=== PATIENT | female | born 1985 | race Two or more races ===

== ENCOUNTER 2017-06-05 08:01 | Inpatient (IN) | payer SELFPAY ==
[2017-06-04 12:42] LABS: ABSOLUTE LYMPHOCYTES (AUTO) 1.4 10^3/uL (0.5-4.7); ABSOLUTE MONOCYTES (AUTO) 0.5 10^3/uL (0.1-1.4); BASOPHILS % (AUTO) 0.3 % (0-2); EOSINOPHILS % (AUTO) 0.1 % (0-6); HEMATOCRIT 34.8 % (36.0-47.0); HEMOGLOBIN 11.4 g/dL (12.0-15.5); LYMPHOCYTES % (AUTO) 20.2 % (13-45); MEAN CORPUSCULAR HEMOGLOBIN 26.1 pg (27.0-33.4); MEAN CORPUSCULAR HGB CONC 32.6 g/dL (32.0-36.0); MEAN CORPUSCULAR VOLUME 80 fl (80-97); MONOCYTES % (AUTO) 7.7 % (3-13); PLATELET COUNT 176 10^3/uL (150-450); RED BLOOD COUNT 4.35 10^6/uL (3.72-5.28); RED CELL DISTRIBUTION WIDTH 15.1 % (11.5-14.0); SEGMENTED NEUTROPHILS % (AUTO) 71.7 % (42-78); TOTAL CELLS COUNTED % (AUTO) 100 %
[2017-06-04 13:06] LABS: APPEARANCE,URINE SLIGHTLY-CLOUDY; BILIRUBIN,URINE NEGATIVE (NEGATIVE); COLOR,URINE YELLOW; GLUCOSE, URINE NEGATIVE (NEGATIVE); KETONES,URINE NEGATIVE (NEGATIVE); LEUKOCYTE ESTERASE,URINE NEGATIVE (NEGATIVE); NITRITE,URINE NEGATIVE (NEGATIVE); PROTEIN,URINE 30 mg/dL (NEGATIVE); URINE SPECIFIC GRAVITY 1.024
[2017-06-04 14:15] LABS: URINE AMPHETAMINES SCREEN NEGATIVE; URINE BARBITURATES SCREEN NEGATIVE; URINE BENZODIAZEPINES SCREEN NEGATIVE; URINE COCAINE SCREEN NEGATIVE; URINE MARIJUANA (THC) SCREEN NEGATIVE; URINE METHADONE SCREEN NEGATIVE; URINE PHENCYCLIDINE SCREEN NEGATIVE
[~2017-06-05 08:01] MED LIST: CEFAZOLIN SODIUM 3 GM in DEXTROSE 5%-WATER 100 ML IV PRN; LACTATED RINGERS 1000 ML IV PRN; LIDOCAINE 0.5% INJ-PF (5 MG/ML) 50 ML SDV SUBCUT PRN; RINGERS SOLUTION,LACTATED 1,000 ML IV PRN
[2017-06-05] MEDS ORDERED: FENTANYL CITRATE INJ/PF 100 MCG/2 ML AMPUL ONE (10:24)
[2017-06-05] MEDS ORDERED: OXYTOCIN 10 UNIT/ML VIAL ONE (10:24)
[2017-06-05] MEDS ORDERED: ONDANSETRON HCL INJ/PF 4 MG/2 ML SDV ONE (10:25)
[2017-06-05] MEDS ORDERED: TETRACAINE HCL/PF 20MG/2ML AMPULE (SPINAL) ONE (10:25)
[2017-06-05] MEDS ORDERED: EPHEDRINE SULFATE INJ 50 MG/1 ML AMPULE ONE (10:25)
[2017-06-05] MEDS ORDERED: OXYTOCIN/NORMAL SALINE 20 UNIT/1,000 ML RTUINJ ONE (10:25)
[2017-06-05] MEDS ORDERED: MIDAZOLAM 2 MG/2 ML INJ ONE (10:25)
[2017-06-05] MEDS: MISOPROSTOL 0.2 MG TABLET ONE ×2 (11:51→12:32)
--- NOTE | 2017-06-05 12:02 | Brief Operative Note ---
BRIEF OPERATIVE REPORT DATE OF SURGERY: 06/05/17 TIME OF SURGERY: 11:55 PREOPERATIVE DIAGNOSIS: 36+6ega, , H/o , Breech/Breech, Di/Di TIUP, Undesired Fertility, Desires Primary Section POSTOPERATIVE DIAGNOSIS: JOSEPH - delivered, tubal Sterilization SURGEON: MAGNUS WOODSON FINDINGS: Baby A VMI breech delivered at 1059, AROM clear fluid 1059, weith 5# 9oz, Apgars 9/9. Baby B VFI breech converted to cephalic for delivery at 1102, AROM clear fluid at 1100, weight 6#5oz. Normal bilateral tubes/ovaries. Filschie clips x 2 placed bilateral tubes. IVF 2000ml, UOP 400ml, 1000ml EBL COMPLICATIONS: None ESTIMATED BLOOD LOSS: 1000ml TISSUE REMOVED OR ALTERED: placenta and cord sent to pathology TECHNICAL PROCEDURE: Primary LTCS with BTL
[2017-06-05] MEDS ORDERED: OXYTOCIN/NORMAL SALINE 20 UNIT/1,000 ML RTUINJ IV PRN (12:03)
[2017-06-05] MEDS ORDERED: ACETAMINOPHEN 100 ML IV PRN (12:03)
[2017-06-05] MEDS ORDERED: SIMETHICONE 80 MG TAB.CHEW PO PRN (12:03)
[2017-06-05] MEDS ORDERED: RINGERS SOLUTION,LACTATED 1,000 ML IV PRN (12:03)
[2017-06-05] MEDS ORDERED: PROMETHAZINE HCL INJ 25 MG/1 ML VIAL IV PRN (12:03)
[2017-06-05] MEDS ORDERED: OXYCODONE-ACETAMINOPHEN 5-325 MG TABLET PO PRN (12:03)
[2017-06-05] MEDS ORDERED: DIPH/PERTUSS(ACELL)/TETANUS VAC/PF 0.5 ML SYR (>=10YO) IM PRN (12:03)
[2017-06-05] MEDS ORDERED: ACETAMINOPHEN 325 MG TABLET PO PRN (12:03)
[2017-06-05] MEDS ORDERED: MISOPROSTOL 0.2 MG TABLET ONE (12:03)
[2017-06-05] MEDS ORDERED: HYDROMORPHONE HCL INJ/PF 2 MG/ML AMPULE IV PRN (12:03)
[2017-06-05] MEDS ORDERED: MEASLES,MUMPS&RUBELLA VACC/PF 0.5 ML VIAL SUBCUT PRN (12:03)
[2017-06-05] MEDS ORDERED: ACETAMINOPHEN 100 ML IV ONE (12:10)
[2017-06-05] MEDS ORDERED: NALBUPHINE HCL INJ 10 MG/1 ML AMPULE ONE (12:15)
--- NOTE | 2017-06-05 12:22 | PDOC DELIVERY SUMMARY ---
Delivery Summary - Maternal Hx : VII Hx Para: IV Hx # Term Pregnancies: 4 Hx # Pregnancies: 0 Hx Total # of Abortions (Sponateous & Elective): 1 Number of Living Children: 4 MANA: 06/27/17 Gestational Age: 36.6 Risk Factors: Other - Di/Di TIUP, Breech/Breech Ruptured Membranes: AROM Time of Rupture: 10:59 Fluids: Clear Fluid Description: BABY B: AROM: 1100 - Delivery Labor: Not In Labor Presentation: Breech Heart Rate Monitoring: Done Pre-Operatively Uterine Contraction Monitoring: External Support Person Present: Yes Location: OR : Scheduled Placenta: Within Normal Limits Placenta Description: normal Number of Vessels (Cord): 3 Nuchal Cord: Yes Delivery of Placenta Date: 06/05/17 Delivery of Placenta Time: 10:59 Estimated Blood Loss: 1000 Quantitative Blood Loss (QBL): 1,395 - Medications Type of Anesthesia:: Spinal - Delivery Medications Delivery Meds: Cytotec 1000mcg Per Rectum/Vagina - Infant Assess and Care Baby 1 Male Delivery of Date: 06/05/17 Delivery of Time: 10:59 at 1 minute: 9 at 5 minutes: 9 Preprinted Number On Band: [id number] Skin to Skin: No Mode of Transport: Bassinet Infant Delivery Weight: 2,525 Delivery Length: 19.25 in - Delivery Personnel Loading Manager: HUDSON WISE RN LIAISON: NEVA VÁZQUEZ MD: MAGNUS WOODSON
--- NOTE | 2017-06-05 12:45 | Operative Report ---
Operative Report DATE OF SURGERY: 06/05/17 PREOPERATIVE DIAGNOSIS: 36+6ega, , H/o , Breech/Breech, Di/Di TIUP, Undesired Fertility, Desires Primary Section POSTOPERATIVE DIAGNOSIS: JOSEPH - delivered, tubal Sterilization OPERATION: Primary LTCS with BTL SURGEON: MAGNUS WOODSON ANESTHESIA: Spinal TISSUE REMOVED OR ALTERED: placenta and cord sent to pathology COMPLICATIONS: None ESTIMATED BLOOD LOSS: 1000ml INTRAOPERATIVE FINDINGS: Baby A VMI breech delivered at 1059, AROM clear fluid 1059, weith 5#9oz, Apgars 9/9. Baby B VFI breech converted to cephalic for delivery at 1102, AROM clear fluid at 1100, weight 6#5oz. Normal bilateral tubes/ovaries. Filschie clips x 2 placed bilateral tubes. IVF 2000ml, UOP 400ml , 1000ml EBL , QBL 1395 PROCEDURE: Anesthesia: Spinal Anesthesia provider: [Barron Rodriguez CRNA, Pillo CEBALLOS] Urine output: [400ml] IV fluids: [1000ml] Indications: [31yo at 36+6ega with Di/Di TIUP and breech/breech presentation. She was counseled on day of preop with armin and day of surgery with SILVIA regarding section and tubal sterilization. She is 100% sure that she has completed childbearing and desires tubal sterilization. She desires to proceed with planned procedure for Primary section with Bilateral tubal sterilization.] Procedure: The patient was taken to the operating room where spinal anesthesia was obtained and found to be adequate. She was then prepped and draped in the normal sterile fashion and placed in the dorsal supine position with a leftward tilt. A Pfannenstiel skin incision was then made and carried through to the underlying layers of the fascia with the scalpel. The fascia was incised in the midline and the incision extended laterally with the Medina scissors. The superior aspect of the fascial incision was then grasped with Tiffanie clamps elevated and the underlying rectus muscles dissected off [bluntly]. Attention was then turned to the inferior aspect of the fascial incision which in a similar fashion was grasped, tented up with Jeancarlos clamps, and the rectus muscles dissected off [bluntly]. The rectus muscles were then in the midline and the peritoneum at the amount identified and entered [bluntly]. The peritoneal incision was then extended superiorly and inferiorly with good visualization of the bladder. The bladder blade was inserted and the vesicouterine peritoneum identified grasped with [place] pickups and entered sharply with the Metzenbaum scissors. This incision was then extended laterally with the Metzenbaum scissors and a bladder flap created digitally. The bladder blade was then reinserted and the lower uterine segment incised in a transverse fashion with the scalpel. The uterine incision was then extended bluntly. The bladder blade was removed and baby A was delivered from breech presentation without difficulty. AROM performed for baby B and due to contraction of uterus and placentation baby B was concerted from oblique breech presentation to cephalic for delivery. The nose and mouth were suctioned and the cord doubly clamped and cut for each baby. And the infants was handed off to waiting pediatricians. The placentas were then delivered spontaneously and the uterus exteriorized and cleared of all clots and debris. The uterine incision was then repaired with 1- 0 Vicryl in a running locked fashion. A second layer of the same suture was used to obtain hemostasis via imbrication of the initial layer. The bladder flap was then repaired with 3-0 chromic in a running fashion. The right fallopian tube was identified and followed out to the fimbriated end and Filschie clips times 2 placed in ampullary portion of the fallopian tube. THis procedure was repeated on the right completing the tubal ligation. The uterus was returned to the patient's abdomen and Interceed was placed overlying the uterine incision to prevent adhesions. The gutters were cleared of all clots and debris. All operative sites were noted to be hemostatic. The fascia was reapproximated with 0 Vicryl in a running fashion from each lateral edge to the midline. Surgicel placed overlying the rectus muscles. The skin was closed with 3-0 Monocryl in a running subcuticular fashion with overlying Dermabond for additional dressing as well as wound closure. The patient tolerated the procedure well. Sponge lap needle and instrument counts are correc times 2. 3 g of Ancef were given prior to skin incision. The patient was taken to the recovery area awake and in stable condition.
[2017-06-05] MEDS ORDERED: KETOROLAC TROMETHAMINE INJ/PF 30 MG/1 ML SDV ONE (13:32)
[2017-06-05] MEDS: KETOROLAC TROMETHAMINE INJ/PF 30 MG/1 ML SDV IV SCH ×2 (13:34→21:23)
[2017-06-05] MEDS: DOCUSATE SODIUM 100 MG CAPSULE PO SCH (17:47)
[2017-06-05] MEDS: OXYCODONE-ACETAMINOPHEN 5-325 MG TABLET PO PRN (20:10)
[2017-06-06] MEDS: OXYCODONE-ACETAMINOPHEN 5-325 MG TABLET PO PRN (04:03)
[2017-06-06] MEDS: KETOROLAC TROMETHAMINE INJ/PF 30 MG/1 ML SDV IV SCH (05:48)
[2017-06-06] MEDS: IBUPROFEN 800 MG TABLET PO SCH ×4 (05:48→23:12)
[2017-06-06 07:09] LABS: HEMATOCRIT 27.8 % (36.0-47.0); MEAN CORPUSCULAR HEMOGLOBIN 26.5 pg (27.0-33.4); MEAN CORPUSCULAR HGB CONC 33.2 g/dL (32.0-36.0); MEAN CORPUSCULAR VOLUME 80 fl (80-97); PLATELET COUNT 167 10^3/uL (150-450); RED BLOOD COUNT 3.48 10^6/uL (3.72-5.28); RED CELL DISTRIBUTION WIDTH 14.9 % (11.5-14.0); WHITE BLOOD COUNT 10.2 10^3/uL (4.0-10.5)
[2017-06-06 07:11] LABS: HEMOGLOBIN 9.2 g/dL (12.0-15.5)
--- NOTE | 2017-06-06 09:36 | PDOC PROGRESS REPORT ---
Subjective-OB Progress Note for:: 06/06/17 Subjective: Doing well, no c/o, babies in room, eating well, voiding, ambulating Physical Exam (OB) Vital Signs: Temp Pulse Resp BP Pulse Ox 98.4 F 64 18 128/72 H 95 06/06/17 08:19 06/06/17 08:19 06/06/17 08:19 06/06/17 08:19 06/06/17 08:19 Intake & Output 06/05/17 06/06/17 06/07/17 06:59 06:59 06:59 Intake Total 2850 Output Total 1325 Balance 1525 Weight 88 kg - Dressing Removed: No Incision: Well Approximated Closure Type: Surgical Glue - Lochia Lochia Amount: Small 10-25 ml Lochia Color: Rubra/Red - Abdomen Description: Soft, Round Hernia Present: No Fundal Description: Firm, Midline Fundal Height: u/u - u/2 Objective-Diagnostic Laboratory: 06/06/17 06:26 06/06/17 06:26 WBC 10.2 RBC 3.48 L Hgb 9.2 L D Hct 27.8 L MCV 80 MCH 26.5 L MCHC 33.2 RDW 14.9 H Plt Count 167 Assessment and Plan(PN) - Assessment and Plan (1) delivery indicated due to breech presentation Is this a current diagnosis for this admission?: Yes (2) Sterilization Is this a current diagnosis for this admission?: Yes (3) Twin delivery by Is this a current diagnosis for this admission?: Yes - Time Spent with Patient Time with patient: Less than 15 minutes - Disposition Anticipated Discharge: Home Within: within 48 hours
[2017-06-06] MEDS: DOCUSATE SODIUM 100 MG CAPSULE PO SCH ×2 (09:48→17:10)
[2017-06-06] MEDS: PRENATAL VITAMIN W DHA CAPSULE PO SCH (09:48)
[2017-06-07] MEDS: IBUPROFEN 800 MG TABLET PO SCH (06:04)
[2017-06-07] MEDS: DOCUSATE SODIUM 100 MG CAPSULE PO SCH (09:48)
[2017-06-07] MEDS: PRENATAL VITAMIN W DHA CAPSULE PO SCH (09:49)
--- NOTE | 2017-06-07 11:22 | PDOC DISCHARGE SUMMARY ---
Final Diagnosis Discharge Date: 06/07/17 - Final Diagnosis (1) delivery indicated due to breech presentation Is this a current diagnosis for this admission?: Yes (2) Twin delivery by Is this a current diagnosis for this admission?: Yes (3) Anemia Is this a current diagnosis for this admission?: Yes Discharge Data - Discharge Medication Home Medications: -U Capsule 1 tab PO DAILY #30 07/09/14 Reason(s) for Admission: Ceasarean Section-Primary Procedures: NST, Ultrasound Intrapartum Procedure(s): : Low Cervical, Transverse - Diagnosis Test Laboratory: Temp Pulse Resp BP Pulse Ox 98.1 F 69 15 142/77 H 98 06/07/17 07:37 06/07/17 07:37 06/07/17 07:37 06/07/17 07:37 06/07/17 07:37 06/04/17 06/04/17 06/06/17 12:10 12:25 06:26 RBC 4.35 3.48 L Hgb 11.4 L 9.2 L D Hct 34.8 L 27.8 L Urine Opiates Screen NEGATIVE - Discharge information/Instructions Discharge Activity: Activity As Tolerated Discharge Diet: Regular Disposition: HOME, SELF-CARE Follow up with: [facility] in: 1 - appt on june 13, 2017
[2017-06-07 11:45] VITALS: BP 146/78
== END 2017-06-07 12:28 | disposition home or self-care (01) | DRG 765 ==
LOC: 2S 08:01
PROVIDERS: ADMIT Student in an Organized Health Care Education/Training Program; ATTEND Student in an Organized Health Care Education/Training Program
PROC: 0UL70CZ Occlusion of Bilateral Fallopian Tubes with Extraluminal Device, Open Approach (ICD-10-PCS; 2017-06-05)
PROC: 4A1HXCZ Monitoring of Products of Conception, Cardiac Rate, External Approach (ICD-10-PCS; 2017-06-05)
PROC: 10D00Z1 Extraction of Products of Conception, Low, Open Approach (ICD-10-PCS; principal; 2017-06-05 10:30)
DX: O32.1XX0 Maternal care for breech presentation, not applicable or unspecified (principal); O30.043 Twin pregnancy, dichorionic/diamniotic, third trimester; O99.02 Anemia complicating childbirth; D64.9 Anemia, unspecified; Z3A.36 36 weeks gestation of pregnancy; Z30.2 Encounter for sterilization; Z37.4 Twins, both stillborn
CPT/HCPCS: 1961; 36415; 80307; 81001; 85025; 85027; 86850; 86900; 86901; 88307; C1765; J0131; J0690; J1885; J2250; J2300; J2405; J2590; J3010; J3490; J7120